=== PATIENT | male | born 1955 | race Caucasian/White ===

== ENCOUNTER → 2022-05-13 15:11 | Emergency (ER) | payer OTHER ==
[~2022-05-13 15:11] MED LIST: AMOX TR-K CLV1 EAC4 PO
== END | disposition home or self-care (01) ==
LOC: FER 15:11
DX: S71.152A Open bite, left thigh, initial encounter (principal); E03.9 Hypothyroidism, unspecified; Z23 Encounter for immunization; Z79.890 Hormone replacement therapy; W54.0XXA Bitten by dog, initial encounter; Y92.410 Unspecified street and highway as the place of occurrence of the external cause
CPT/HCPCS: 90471; 90714; 99283